=== PATIENT | male | born 1980 | race Caucasian/White ===

== ENCOUNTER 2016-06-28 17:40 | Emergency (ER) | payer OTHER ==
[2016-06-28 18:13] VITALS: TEMP 98.2
[2016-06-28] MEDS ORDERED: TDAP ADULT 0.5 ML INJ (BOOSTRIX) IM ONE (18:57)
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
[2016-06-28] MEDS ORDERED: LETS SOLN TOPICAL 1 EA SYR TP ONE (18:58)
[2016-06-28] MEDS ORDERED: AMOXICILLIN/CLAVULANATE POT 875/125 MG TAB PO ONE ×2 (19:34→21:09)
[2016-06-28 21:21] VITALS: BP 124/74; PULSE 68; RESP 16; O2SAT 97
== END 2016-06-28 21:26 | disposition home or self-care (01) ==
PROC: 3E0234Z Introduction of Serum, Toxoid and Vaccine into Muscle, Percutaneous Approach (ICD-10-PCS; principal; 2016-06-28)
PROC: 0HQDXZZ Repair Right Lower Arm Skin, External Approach (ICD-10-PCS; principal; 2016-06-28)
DX: S51.811A Laceration without foreign body of right forearm, initial encounter (principal); Z23 Encounter for immunization; V18.0XXA Pedal cycle driver injured in noncollision transport accident in nontraffic accident, initial encounter; Y99.8 Other external cause status; Y93.89 Activity, other specified